=== PATIENT | male | born 1985 | race Caucasian/White ===

== ENCOUNTER 2018-04-17 16:29 | Outpatient (REF) | payer MEDICARE, MEDICAID, SELFPAY ==
[2018-04-17 21:35] LABS: Abs Immature Grans 0.08 k/cumm (0.0-0.09); Absolute Basophil Count 0.06 k/cumm (0.0-0.2); Basophils % 0.3; Eosinophils % 1.2; HCT 44.7 % (40.0-50.0); HGB 14.8 g/dL (13.5-17.5); Immature Grans % 0.4; Mean Corp. HGB Concentration 33.1 g/dL (32.0-36.0); Mean Corpuscular Hemoglobin 31.9 pg (27.0-33.0); Mean Corpuscular Volume 96.3 fL (80-95); Mean Platelet Volume 10.6 fL (8.0-11.0); Platelet Count 309 x1000/uL (130-400); RBC 4.64 m/cumm (4.50-6.00); RBC Distribution Width 13.2 % (11.8-14.1); White Blood Cell Count 19.09 k/cumm (4.4-10.8)
[2018-04-17 22:15] LABS: Absolute Eosinophil Count 0.23 k/cumm (0.0-0.7); Absolute Lymphocyte Count 8.59 k/cumm (1.2-3.4); Absolute Monocyte Count 0.57 k/cumm (0.11-0.7); Absolute Neutrophil Count 9.93 k/cumm (1.2-6.7); Atypical Lymphocytes % 3
[2018-04-17 22:16] LABS: Diff Comment Manual Differential; RBC Morphology Normal
== END 2018-04-17 16:49 ==
LOC: NCHCN 16:29
PROVIDERS: PCP Nurse Practitioner Family; Visit Provider Nurse Practitioner Family
DX: D72.829 Elevated white blood cell count, unspecified (principal); E78.5 Hyperlipidemia, unspecified; R56.9 Unspecified convulsions
CPT/HCPCS: 85025

== ENCOUNTER 2018-10-23 07:20 | Emergency (ER) | payer MEDICARE, MEDICAID, SELFPAY ==
[2018-10-23 07:33] VITALS: BP 122/76; PULSE 76; RESP 16; TEMP 36.9; O2SAT 99
--- NOTE | 2018-10-23 07:41 | DI.COMBO_ITS ---
SYMPTOM/DIAGNOSIS: INJURY RIGHT HAND AND RIGHT WRIST: 10/23 Three views of the hand and 3 views of the wrist were obtained. There is a linea lucency projected over the region of the base of the 5th metatarsal and distal hamate raising the possibility of a nondisplaced fracture, on oblique views of the wrist possible separate lucency through the distal hamate noted. No additional bony abnormality seen on radiographs of the hand and wrist. CONCLUSION: Findings suggesting fracture of the base of the 5th metacarpal and/or the distal hamate laterally. CT may be considered for more precise evaluation of possible fracture anatomy..
--- NOTE | 2018-10-23 08:52 | W.ED.GENAD ---
Discharge Plan Disposition Patient Disposition: HOME Condition: Stable Discharge Details Chief Complaint: Orthopedic Clinical Impression: Fracture, metacarpal Primary Care Provider: Saira Viera ED Provider: Thee Pinto Home Meds and New Rx's Prescriptions: No Action gabapentin 300 MG capsule 300 mg PO DAILY RF: 0 risperidone 3 MG tablet 1 tab PO HS RF: 0 Discharge Instructions Instructions: Hand Fracture (ED), Boxer Fracture (ED) Additional Instructions: He may continue to apply ice to the hand to help with swelling and take [id number] ibuprofen as needed for discomfort. Just take as directed on packaging. Please call the orthopedic office tomorrow for arrangement of follow-up appointment. Stand Alone Forms: Work Release Referrals: Darryl Salvador MD [ [facility] STAFF PHYSICIAN] - (Call the office tomorrow for arrangement of follow-up appointment) Discharge Data Discharge Date/Time-TO BE ENTERED AT DEPARTURE: 10/23/18 10:38 Medical Decision Making Patient presenting to the emergency department for chief complaint of right hand injury. Patient states 1 day ago he got upset and punched a solid wall. Afterwards he noted significant amount of pain and discomfort to his hand which is brought him to the emergency department today. Patient states he has applied some ice to the dorsal hand but still has significant amount of swelling discomfort. Patient has full range of motion of hand and wrist, mild discomfort to the base of the fifth metacarpal but significant amount of discomfort to midshaft and distal third and fourth metacarpals. Exam is otherwise unremarkable. Prior to me seeing patient staff analyst initiated protocol for ordering imaging which is appropriate. Review of imaging I did not see any obvious fracture but speaking with radiologist and radiologist interpretation there is a question of a very subtle fifth proximal metacarpal fracture and also question of a lateral hamate fracture. Both of these areas were only seen with small lunacy's no obvious displacement. Speaking with radiologist he questioned if we should do CT imaging to further view abnormalities. Prior to CT imaging I decided to discuss case with orthopedist. Spoke with Dr. Salvador whom recommended after review of imaging a universal cock-up splint. Patient placed upon orthopedic follow-up list. HPI General Mode of arrival: ambulatory. Date/Time Provider Initiated Documentation: 10/23/18 08:21. Limitations to Documentation: no limitations. Information obtained by: patient. History of Present Illness 33 year old M presents to the emergency department with the chief complaint of Right hand pain, blunt trauma, described as moderate, with intensity rated at 6. Quality is described as aching, and is localized to the right and upper extremity. Patient started experiencing this day(s) (1) and it has been constant. Movement worsens symptoms . Patient notes no other symptoms.. Patient did receive the following treatments prior to arrival, cold therapy Related Data Home Medications Medication Instructions Recorded Confirmed risperidone 1 tab PO HS 12/20/14 12/20/14 gabapentin 300 mg PO DAILY tab-cap 04/06/17 Allergies Allergy/AdvReac Type Severity Reaction Status Date / Time latex Allergy Mild Itching Unverified 04/06/17 08:31 Antihistamines - Alkylamine Allergy Unverified 04/06/17 08:31 tomatoes Allergy Mild Nausea Uncoded 12/20/14 11:54 General Stated Complaint: Orthopedic MILTON: 4 Review of Systems Musculoskeletal Reports as per HPI, Denies numbness and Denies tingling Integumentary/Breasts Denies rash, Denies sores and Denies wounds Neurologic Denies numbness and Denies tingling PFSH Social History Smoking/Tobacco Use Status: Current every day Alcohol Intake: former Drug use: Rarely Substance use type: does not use Do you feel safe at home: Yes Do you feel safe in your relationship?: Yes Exam Const General: cooperative and no acute distress Orientation: alert, awake and oriented x3 Resp Effort & Inspection: normal respiratory effort and able to speak in complete sentences Cardio Rate: regular rate Rhythm: regular rhythm Extrem General: normal exam except as noted Right upper extremity: wrist Details: normal to inspection, normal ROM, normal vascular exam and radial pulse present; no tenderness, no ecchymosis, no crepitus and no deformity and hand Details: neuromotor exam normal, neurosensory exam normal, tendon exam normal, tenderness Location: of the dorsal hand Location: over the 3rd metacarpal (Significant midshaft and distal), over the 4th metacarpal (Significant midshaft and distal) and over the 5th metacarpal (mild proximal tenderness), vascular exam Details: radial pulse present and normal capillary refill, normal ROM of fingers, swelling Location: of the dorsal hand and abrasion Location: of the dorsal hand Location: over the 3rd metacarpal (distal); no ecchymosis and no crepitus Course Temperature Source Tympanic 10/23/18 07:33
[2018-10-23] MEDS: Ibuprofen 600 MG TAB PO (09:07)
== END 2018-10-23 10:38 | disposition home or self-care (01) ==
PROVIDERS: Emergency Provider Nurse Practitioner Family; PCP Nurse Practitioner Family
DX: S62.306A Unspecified fracture of fifth metacarpal bone, right hand, initial encounter for closed fracture (principal); W22.8XXA Striking against or struck by other objects, initial encounter
CPT/HCPCS: 26600; 73110; 73130; L3809

== ENCOUNTER → 2018-11-01 11:23 | Outpatient (BNVA) | payer MEDICARE, MEDICAID, SELFPAY | PROVIDERS: PCP Nurse Practitioner Family; Referring Provider Nurse Practitioner Family; Visit Provider Orthopaedic Surgery | DX: S62.111A Displaced fracture of triquetrum [cuneiform] bone, right wrist, initial encounter for closed fracture (principal); W22.8XXA Striking against or struck by other objects, initial encounter | CPT/HCPCS: 99201; 99213; L3908 ==

== ENCOUNTER 2018-11-07 14:56 | Outpatient (REF) | payer MEDICARE, MEDICAID, SELFPAY ==
[2018-11-07 21:27] LABS: Abs Immature Grans 0.13 k/cumm (0.0-0.09); Absolute Basophil Count 0.05 k/cumm (0.0-0.2); Absolute Eosinophil Count 0.21 k/cumm (0.0-0.7); Absolute Monocyte Count 1.45 k/cumm (0.11-0.7); Absolute Neutrophil Count 18.13 k/cumm (1.2-6.7); Basophils % 0.2; Eosinophils % 0.8; HCT 43.3 % (40.0-50.0); HGB 14.4 g/dL (13.5-17.5); Immature Grans % 0.5; Lymphocytes % 22.7; Mean Corp. HGB Concentration 33.3 g/dL (32.0-36.0); Mean Corpuscular Volume 96.2 fL (80-95); Mean Platelet Volume 10.3 fL (8.0-11.0); Monocytes % 5.6; Neutrophils % 70.2; Platelet Count 362 x1000/uL (130-400); RBC Distribution Width 13.1 % (11.8-14.1)
[2018-11-07 21:37] LABS: Absolute Lymphocyte Count 5.86 k/cumm (1.2-3.4)
[2018-11-07 22:16] LABS: White Blood Cell Count 25.82 k/cumm (4.4-10.8)
[2018-11-07 22:17] LABS: Diff Comment Diff Reviewed; Macrocytosis 2+
== END 2018-11-07 15:16 ==
LOC: NCHCN 14:56
PROVIDERS: PCP Nurse Practitioner Family; Visit Provider Nurse Practitioner Family
DX: D72.829 Elevated white blood cell count, unspecified (principal); F20.9 Schizophrenia, unspecified; R56.9 Unspecified convulsions; F17.209 Nicotine dependence, unspecified, with unspecified nicotine-induced disorders
CPT/HCPCS: 85025

== ENCOUNTER → 2018-11-29 09:27 | Outpatient (BNVA) | payer MEDICARE, MEDICAID, SELFPAY | PROVIDERS: PCP Nurse Practitioner Family; Referring Provider Nurse Practitioner Family; Visit Provider Orthopaedic Surgery | DX: S62.111D Displaced fracture of triquetrum [cuneiform] bone, right wrist, subsequent encounter for fracture with routine healing (principal); X58.XXXD Exposure to other specified factors, subsequent encounter | CPT/HCPCS: 99213 ==

== ENCOUNTER 2019-05-03 13:09 | Outpatient (REF) | payer MEDICARE, MEDICAID, SELFPAY ==
[2019-05-03 20:44] LABS: Abs Immature Grans 0.05 k/cumm (0.0-0.09); Absolute Basophil Count 0.05 k/cumm (0.0-0.2); Absolute Lymphocyte Count 5.43 k/cumm (1.2-3.4); Absolute Monocyte Count 1.05 k/cumm (0.11-0.7); Basophils % 0.3; Eosinophils % 3.5; HGB 14.9 g/dL (13.5-17.5); Immature Grans % 0.3 %; Lymphocytes % 34.3; Mean Corp. HGB Concentration 33.1 g/dL (32.0-36.0); Mean Corpuscular Hemoglobin 31.2 pg (27.0-33.0); Mean Corpuscular Volume 94.3 fL (80-95); Mean Platelet Volume 10.1 fL (8.0-11.0); Monocytes % 6.6; Platelet Count 464 x1000/uL (130-400); RBC 4.77 m/cumm (4.50-6.00); RBC Distribution Width 12.6 % (11.8-14.1); White Blood Cell Count 15.84 k/cumm (4.4-10.8)
[2019-05-03 20:54] LABS: Absolute Eosinophil Count 0.55 k/cumm (0.0-0.7); Absolute Neutrophil Count 8.71 k/cumm (1.2-6.7)
[2019-05-03 21:39] LABS: Diff Comment Diff Reviewed; RBC Morphology Normal
== END 2019-05-03 13:29 ==
LOC: NCHCN 13:09
PROVIDERS: PCP Nurse Practitioner Family; Visit Provider Nurse Practitioner Family
DX: D72.829 Elevated white blood cell count, unspecified (principal); E78.5 Hyperlipidemia, unspecified
CPT/HCPCS: 85025

== ENCOUNTER 2019-05-25 12:44 | Outpatient (REF) | payer MEDICARE, MEDICAID, SELFPAY ==
[2019-05-25 20:57] LABS: Abs Immature Grans 0.04 k/cumm (0.0-0.09); Absolute Eosinophil Count 0.43 k/cumm (0.0-0.7); Absolute Lymphocyte Count 4.73 k/cumm (1.2-3.4); Basophils % 0.2; Eosinophils % 2.6; HCT 42.2 % (40.0-50.0); Immature Grans % 0.2 %; Lymphocytes % 28.9; Mean Corp. HGB Concentration 33.2 g/dL (32.0-36.0); Mean Corpuscular Hemoglobin 31.9 pg (27.0-33.0); Mean Corpuscular Volume 96.1 fL (80-95); Mean Platelet Volume 10.7 fL (8.0-11.0); Neutrophils % 61.1; Platelet Count 334 x1000/uL (130-400); RBC 4.39 m/cumm (4.50-6.00); RBC Distribution Width 13.2 % (11.8-14.1); White Blood Cell Count 16.35 k/cumm (4.4-10.8)
[2019-05-25 21:06] LABS: Absolute Basophil Count 0.03 k/cumm (0.0-0.2); Absolute Monocyte Count 1.14 k/cumm (0.11-0.7); Absolute Neutrophil Count 9.99 k/cumm (1.2-6.7)
[2019-05-25 21:07] LABS: ALT 32 U/L (16-63); AST 20 U/L (15-37); Albumin 3.8 g/dL (3.4-5.0); Alkaline Phosphatase 130 U/L (46-116); Anion Gap 7.4 mmol/L (3-11); BUN 12 mg/dL (7-18); Bilirubin, Total 0.4 mg/dL (0.2-1.0); CO2 27.6 mmol/L (21.0-32.0); CREATININE 0.92 mg/dL (0.70-1.30); Calcium 9.1 mg/dL (8.5-10.1); Chloride 108 mmol/L (98-107); Glucose 96 mg/dL (74-106); LDH 208 U/L (85-227); Potassium 4.2 mmol/L (3.5-5.1); Sodium 143 mmol/L (136-145); Total Protein 6.6 g/dL (6.4-8.2)
== END 2019-05-25 13:04 ==
LOC: NCHCN 12:44
PROVIDERS: PCP Nurse Practitioner Family; Visit Provider Nurse Practitioner Family
DX: D72.829 Elevated white blood cell count, unspecified (principal)
CPT/HCPCS: 80053; 83615; 85025

== ENCOUNTER 2020-01-15 15:21 | Outpatient (REF) | payer MEDICARE, MEDICAID, SELFPAY ==
[2020-01-15 21:16] LABS: Abs Immature Grans 0.05 10^3/uL (0.0-0.06); Absolute Eosinophil Count 0.35 10^3/uL (0.0-0.7); Absolute Neutrophil Count 11.07 10^3/uL (1.2-6.7); Basophils % 0.6; HCT 48.6 % (40.0-50.0); HGB 16.5 g/dL (13.5-17.5); Immature Grans % 0.3; Lymphocytes % 27.7; MCH 32.7 pg (27.0-33.0); MCV 96.2 fL (80-95); Monocytes % 6.1; Neutrophils % 63.3; Nucleated RBC 0 %; Platelet Count 341 10^3/uL (130-400); RBC 5.05 10^6/uL (4.36-5.78); RDW 12.1 % (11.8-14.1); RDW-SD 43.1 fL; WBC 17.49 10^3/uL (4.4-10.8)
[2020-01-15 21:19] LABS: Absolute Lymphocyte Count 4.84 10^3/uL (1.2-3.4); Absolute Monocyte Count 1.07 10^3/uL (0.1-0.8)
== END 2020-01-15 15:41 ==
LOC: NCHCN 15:21
PROVIDERS: PCP Nurse Practitioner Family; Visit Provider Nurse Practitioner Family
DX: D72.829 Elevated white blood cell count, unspecified (principal); E78.5 Hyperlipidemia, unspecified; F20.9 Schizophrenia, unspecified
CPT/HCPCS: 85025

== ENCOUNTER 2020-05-05 15:18 | Outpatient (REF) | payer MEDICARE, MEDICAID, SELFPAY ==
[2020-05-06 09:36] LABS: HIV-1/2 Ag & Ab Screen Negative (Negative)
[2020-05-06 10:30] LABS: Syphilis Serology (RPR) Negative (Negative)
== END 2020-05-05 15:19 | disposition home or self-care (01) ==
LOC: NCHCN 15:18
PROVIDERS: PCP Nurse Practitioner Family; Visit Provider Nurse Practitioner Family
DX: Z11.3 Encounter for screening for infections with a predominantly sexual mode of transmission (principal); Z11.4 Encounter for screening for human immunodeficiency virus [HIV]; D72.829 Elevated white blood cell count, unspecified
CPT/HCPCS: 87389; 86592

== ENCOUNTER 2020-08-25 08:21 | Outpatient (REF) | payer MEDICARE, MEDICAID, SELFPAY ==
[2020-08-25 15:15] LABS: Abs Immature Grans 0.07 10^3/uL (0.0-0.06); Absolute Basophil Count 0.08 10^3/uL (0.0-0.2); Basophils % 0.5; Eosinophils % 1.7; HCT 45.4 % (40.0-50.0); HGB 14.7 g/dL (13.5-17.5); Immature Grans % 0.4; Lymphocytes % 24.6; MCH 31.5 pg (27.0-33.0); MCHC 32.4 % (32.0-36.0); MCV 97.2 fL (80-95); MPV 10.7 fL (8.0-11.0); Monocytes % 5.3; Neutrophils % 67.5; Nucleated RBC 0 %; Platelet Count 338 10^3/uL (130-400); RBC 4.67 10^6/uL (4.36-5.78); RDW 12.6 % (11.8-14.1); RDW-SD 44.7 fL; WBC 16.27 10^3/uL (4.4-10.8)
[2020-08-25 15:17] LABS: Absolute Eosinophil Count 0.28 10^3/uL (0.0-0.7); Absolute Monocyte Count 0.86 10^3/uL (0.1-0.8); Absolute Neutrophil Count 10.98 10^3/uL (1.2-6.7)
== END 2020-08-25 08:22 | disposition home or self-care (01) ==
LOC: NCHCN 08:21
PROVIDERS: PCP Nurse Practitioner Family; Visit Provider Nurse Practitioner Family
DX: J30.2 Other seasonal allergic rhinitis (principal); D72.829 Elevated white blood cell count, unspecified; M54.5 Low back pain; G89.29 Other chronic pain; F20.9 Schizophrenia, unspecified; E78.5 Hyperlipidemia, unspecified; R26.9 Unspecified abnormalities of gait and mobility; F17.200 Nicotine dependence, unspecified, uncomplicated
CPT/HCPCS: 85025

== ENCOUNTER 2021-04-28 18:52 | Outpatient (REF) | payer OTHER, MEDICAID, SELFPAY ==
[2021-04-28 15:03] LABS: Abs Immature Grans 0.07 10^3/uL (0.0-0.06); Absolute Basophil Count 0.08 10^3/uL (0.0-0.2); Absolute Lymphocyte Count 4.82 10^3/uL (1.2-3.4); Basophils % 0.5; Eosinophils % 0.5; HCT 44.7 % (40.0-50.0); Immature Grans % 0.4; MCH 31.5 pg (27.0-33.0); MCHC 31.3 % (32.0-36.0); MCV 100.7 fL (80-95); MPV 10.1 fL (8.0-11.0); Monocytes % 4.6; Nucleated RBC 0 %; Platelet Count 378 10^3/uL (130-400); RBC 4.44 10^6/uL (4.36-5.78); RDW 12.4 % (11.8-14.1); RDW-SD 46.7 fL; WBC 16.62 10^3/uL (4.4-10.8)
[2021-04-28 15:06] LABS: Absolute Eosinophil Count 0.08 10^3/uL (0.0-0.7); Absolute Monocyte Count 0.76 10^3/uL (0.1-0.8)
[2021-04-28 15:25] LABS: ALT 20 U/L (16-63); AST 11 U/L (15-37); Albumin 4.1 g/dL (3.4-5.0); Alkaline Phosphatase 144 U/L (46-116); Anion Gap 8.3 mmol/L (3-11); BUN 18 mg/dL (7-18); Bilirubin, Total 0.3 mg/dL (0.2-1.0); CO2 29.7 mmol/L (21.0-32.0); CREATININE 0.8 mg/dL (0.70-1.30); Calcium 9.3 mg/dL (8.5-10.1); Calculated LDL 161 mg/dL (<100); Chloride 102 mmol/L (98-107); Cholesterol 251 mg/dL (<200); Glucose 160 mg/dL (74-106); HDL Cholesterol 44 mg/dL (40-60); Potassium 4.5 mmol/L (3.5-5.1); Sodium 140 mmol/L (136-145); TSH 2.31 uIU/mL (0.36-3.74); Total Protein 7.4 g/dL (6.4-8.2); Triglyceride 230 mg/dL (<150)
[2021-04-28 16:00] LABS: Amylase 46 U/L (25-115); FREE T4 0.89 ng/dL (0.76-1.46); Lipase 71 U/L (73-393)
[2021-04-28 22:28] LABS: T3,Free 3.8 pg/mL (2.8-5.3)
[2021-04-30 07:37] LABS: GGT 35 U/L (15-85)
[2021-04-30 09:40] LABS: C-Peptide 2.8 ng/mL (1.1 - 4.4)
[2021-05-06 13:46] LABS: ZnT8 Antibodies <15.0 U/mL (<15.0)
== END 2021-04-28 18:53 | disposition home or self-care (01) ==
LOC: NCHCN 18:52
PROVIDERS: PCP Nurse Practitioner Family; Visit Provider Nurse Practitioner Family
DX: E11.9 Type 2 diabetes mellitus without complications (principal); R74.8 Abnormal levels of other serum enzymes
CPT/HCPCS: 80053; 80061; 83690; 86337; 86341; 82150; 82977; 84439; 84443; 84481; 84681; 85025

== ENCOUNTER 2021-04-30 17:32 | Outpatient (REF) | payer OTHER, MEDICAID, SELFPAY | END 2021-04-30 17:33 | disposition home or self-care (01) | LOC: NCHCN 17:32 | PROVIDERS: PCP Nurse Practitioner Family; Visit Provider Nurse Practitioner Family ==

== ENCOUNTER 2021-08-28 12:36 | Outpatient (REF) | payer OTHER, MEDICAID, SELFPAY ==
[2021-08-28 19:29] LABS: Abs Immature Grans 0.06 10^3/uL (0.0-0.06); Absolute Eosinophil Count 0.19 10^3/uL (0.0-0.7); Absolute Neutrophil Count 9.09 10^3/uL (1.2-6.7); Basophils % 0.4; Eosinophils % 1.2; HCT 42.6 % (40.0-50.0); HGB 14.3 g/dL (13.5-17.5); Immature Grans % 0.4; Lymphocytes % 34.5; MCH 32.2 pg (27.0-33.0); MCHC 33.6 % (32.0-36.0); MCV 96 fL (80-95); MPV 10.4 fL (8.0-11.0); Monocytes % 5.3; Neutrophils % 58.2; Platelet Count 323 10^3/uL (130-400); RBC 4.44 10^6/uL (4.36-5.78); RDW 12.3 % (11.8-14.1); RDW-SD 43.5 fL; WBC 15.61 10^3/uL (4.4-10.8)
[2021-08-28 19:30] LABS: Absolute Basophil Count 0.06 10^3/uL (0.0-0.2); Absolute Lymphocyte Count 5.39 10^3/uL (1.2-3.4); Absolute Monocyte Count 0.83 10^3/uL (0.1-0.8)
[2021-08-28 19:43] LABS: ALT 22 U/L (16-63); AST 23 U/L (15-37); Albumin 4.1 g/dL (3.4-5.0); Alkaline Phosphatase 126 U/L (46-116); Anion Gap 10.3 mmol/L (3-11); BUN 16 mg/dL (7-18); Bilirubin, Total 0.3 mg/dL (0.2-1.0); CO2 26.7 mmol/L (21.0-32.0); Calcium 9.1 mg/dL (8.5-10.1); Chloride 104 mmol/L (98-107); Glucose 78 mg/dL (74-106); Sodium 141 mmol/L (136-145); Total Protein 7.4 g/dL (6.4-8.2)
[2021-08-28 19:56] LABS: Diff Comment Agrees w/ Instrument; RBC Morphology Normal
[2021-08-31 05:53] LABS: Vitamin D 25 Total 34.4 ng/mL (30-100)
== END 2021-08-28 12:37 | disposition home or self-care (01) ==
LOC: NCHCN 12:36
PROVIDERS: PCP Nurse Practitioner Family; Visit Provider Nurse Practitioner Family
DX: E87.6 Hypokalemia (principal); R74.8 Abnormal levels of other serum enzymes; E11.9 Type 2 diabetes mellitus without complications; J30.2 Other seasonal allergic rhinitis; D72.829 Elevated white blood cell count, unspecified; E78.5 Hyperlipidemia, unspecified; Z72.0 Tobacco use
CPT/HCPCS: 80053; 82306; 85025

== ENCOUNTER 2021-11-30 21:02 | Emergency (ER) | payer OTHER, MEDICAID, SELFPAY ==
[2021-11-30 21:06] VITALS: BP 111/71; PULSE 90; RESP 16; TEMP 36.6; O2SAT 97
--- NOTE | 2021-11-30 21:23 | ED.GENADUL_ITS ---
Discharge Plan Disposition Patient Disposition: STILL A PATIENT Condition: Stable Discharge Details Clinical Impression: Psychosis Primary Care Provider: Saira Viera ED Provider: King Mcfadden Home Meds and New Rx's Prescriptions: No Action aripiprazole [Abilify] 5 mg tablet 5 mg PO QHS gabapentin 300 MG capsule 300 mg PO DAILY risperidone 3 MG tablet 1 tab PO HS Label Comments: 04/06/17 PER CAREGIVER PT. TAKES 4 MG QD. insulin aspart U-100 100 unit/mL (3 mL) insulin pen SUBCUT Levemir FlexTouch U-100 Insuln 100 unit/mL (3 mL) insulin pen 20 unit SUBCUT DAILY Label Comments: ADMINISTER 20 UNITS UNDER THE SKIN EVERY MORNING potassium chloride 20 mEq tablet extended release 1 tab PO DAILY Label Comments: TAKE 1 TABLET BY MOUTH EVERY DAY Medical Decision Making 36 yo male with prior psychiatric episodes including threatening behavior and psychosis comes in with [facility] and pd on involuntary psych evaluation for psychosis per [facility]. He is currently calm and doesn't answer many questions. He does know his name where he is and year but won't answer most other questions including ros or past medical history. HE does state he wants food and coffee. Per [facility] he has been living at the [place] and acting bizarre for weeks and has been worsening. They report he has been telling other neighbors that they are actually people and talking of other nonsensical things. He has been punching side walks and apparently was found tonight when he was placed on ee status by pd completely wet on his pants and had no idea how he had gotten to [place]. He has normal gait and moving all extremities, no agitation on exam. Based on provided [facility] history feel he warrants involuntary psychiatric assessment. EE papers filled out. He has no signs of trauma, normal gait and has had prior psychiatric episodes similar to this so doubt underlying medical proc ess. Differential Diagnosis Differential Diagnosis: schizophrenia, psychosis Medical Records Medical records reviewed: Yes I reviewed the patient's medical records. HPI General Mode of arrival: ambulatory . Date/Time Provider Initiated Documentation: 11/30/21 21:05 . Information obtained by: old records reviewed ([facility]) . History of Present Illness 36 year old M presents to the emergency department with the chief complaint of psychotic per [facility], Patient started experiencing this month(s) (1) and it has been constant. No relieving factors improve symptom(s), No exacerbating factors reported . Patient did receive the following treatments prior to arrival, none Related Data Home Medications Medication Instructions Recorded Confirmed risperidone 3 mg tablet 1 tab PO HS 12/20/14 11/30/21 gabapentin 300 mg capsule 300 mg PO DAILY 04/06/17 11/30/21 aripiprazole 5 mg tablet (Abilify) 5 mg PO QHS 11/01/18 11/29/18 insulin aspart U-100 100 unit/mL device subcut 11/30/21 (3 mL) subcutaneous pen insulin detemir U-100 100 unit/mL 20 unit subcut DAILY 11/30/21 11/30/21 (3 mL) subcutaneous pen (Levemir FlexTouch U-100 Insulin) potassium chloride 20 mEq 1 tab PO DAILY 11/30/21 11/30/21 tablet,extended release Allergies Allergy/AdvReac Type Severity Reaction Status Date / Time latex Allergy Mild Itching Unverified 11/30/21 21:13 Antihistamines - Alkylamine Allergy Unverified 11/30/21 21:13 tomatoes Allergy Mild Nausea Uncoded 11/30/21 21:13 General Stated Complaint: PsychEval MILTON: 2 Review of Systems Unobtainable due to mental status (refusing to answer questions) PFSH All Active Problems (Updated 11/30/21 @ 22:03 by King Mcfadden MD) Psychosis (Acute) Fracture of triquetrum of right wrist (Acute) Mental health hold (Acute) Homicidal ideation (Acute) a. Statements of wanting to kill people. Tobacco use (Chronic) Marijuana use (Chronic) History of ankle fracture (Chronic) Dyslexia (Chronic) Psychiatric symptoms (Chronic) a. Terrible temper. b. Apparently has had trouble with law enforcement in the past. Social History Smoking/Tobacco Use Status: Current every day Tobacco Type: cigarettes Smoking risk assessment performed?: Yes Alcohol Intake: current Drug use: Rarely Substance use type: does not use Current gender identity: male Do you feel safe at home: Yes Do you feel safe in your relationship?: Yes Exam Const General: no acute distress Orientation: alert HENMT Head: normal to inspection Ears: external ears normal General nose exam: external nose normal Mouth: moist mucous membranes Eyes General: appearance normal, both eyes and all related structures Neck Neck: normal visual inspection Resp Effort & Inspection: normal respiratory effort and able to speak in complete sentences Cardio Rate: regular rate Skin General skin exam: no rashes or lesions noted Neuro General: patient alert Extrem General: normal to inspection Psych Speech and Movement: not agitated Course Vital Signs Vital signs: Vital Signs Temperature 36.6 C 11/30/21 21:06 Pulse 90 11/30/21 21:06 Respiratory Rate 16 11/30/21 21:06 Blood Pressure 111/71 11/30/21 21:06 Pulse Oximetry 97 11/30/21 21:06 Temperature 36.6 C 11/30/21 21:06 Temperature Source Temporal Artery Scan 11/30/21 21:06 Pulse 90 11/30/21 21:06 Respiratory Rate 16 11/30/21 21:06 Respiratory Effort 11/30/21 21:06 Blood Pressure 111/71 11/30/21 21:06 Blood Pressure Position Sitting 11/30/21 21:06 Pulse Oximetry 97 11/30/21 21:06 Oxygen Delivery Method Room Air 11/30/21 21:06 Oxygen Flow Rate 0 11/30/21 21:06
[2021-11-30] MEDS: LORazepam 1 MG TAB 2 MG PO (21:47)
[2021-11-30] MEDS: Haloperidol 5 MG TAB PO (21:47)
[2021-11-30 21:57] LABS: Abs Immature Grans 0.04 10^3/uL (0.0-0.06); Absolute Eosinophil Count 0.06 10^3/uL (0.0-0.7); Basophils % 0.3; Eosinophils % 0.4; HCT 39.6 % (40.0-50.0); HGB 12.9 g/dL (13.5-17.5); Immature Grans % 0.3; Lymphocytes % 28.8; MCH 31.7 pg (27.0-33.0); MCHC 32.6 % (32.0-36.0); MCV 97 fL (80-95); MPV 10.8 fL (8.0-11.0); Monocytes % 6.6; Neutrophils % 63.6; Platelet Count 225 10^3/uL (130-400); RBC 4.07 10^6/uL (4.36-5.78); RDW 12.6 % (11.8-14.1); RDW-SD 45.1 fL; WBC 14.77 10^3/uL (4.4-10.8)
--- NOTE | 2021-11-30 22:01 | PDOC.MHCN ---
Date of service: 11/30/21 Time of Service: 22:05 Mental Health Emergency Note Release [facility] release signed:: Yes Reason for Visit Client arrived at [facility] ED via [facility] police department after a MH warrant was executed on client. Client was taken into protective custody earlier this evening after police received reports that client was standing in [facility] parking lot with no shoes on and wet and waving a knife at people. Client states to this justowriter operator when attempting to be assessed: my name is not Sohan, I am Tyree and I am going to counts include 234 beds at the [facility]. Client also is reported to [employer] that family members are and reports that he can see through them. In the last 2 weeks has the pt presented for ES prior to today?: No Client Information Client is: IDDS (Client is part of the IDDS program at [facility]) Well Housed: No,status: Homeless Non Suicidal Self Injury Current: No History: yes, Client has been hospitalized 2x on an involuntary hold in 2013 for similar presentation and homicidial ideations. Safety Risk/Harm to Self or Others Current Ideation to Harm Self or Others: Yes to self. Intent: no, has no intent. Plan: no.does not have a plan. and to others. Intent: yes, has intent to harm others Plan: no, does not have a plan. History of becoming violent with another person(any age): yes,history of violence with others. Risk: Does risk to harm exist?: yes. Risk: High Risk Duty to warn indicated: No Asssessment/Mental Status Appearance: Unremarkable Attitude: Guarded Behavior: Poor impulse control and Repetitive movements Speech: Slow and Hesitant Affect: Expansive and Cogruent with mood Mood: Stressed, Depressed and Irritable Thought process: Loose associations Hallucinations: yes, Visual and Auditory Delusions: yes, Persectory/Paranoid and Bizarre Attention: Wandering and Poor concentration Perception: Not impaired Orientation: Fully orientated Memory: Intact Insight: Poor Judgement: Poor Neurovegetative Symptoms Sleep: Decrease Appetitie: Decrease Interests: Decrease Energy: Decrease Libido: Not applicable Substance Use: Do you use nicotine?: Yes Have you used substances in the last 7 days?: No Additional Issues: Assaultive/Threatening Behavior: Yes Medical Concerns: Yes Client engaged in active self harm w/weapon: No Threatening to run away: No Child reported abuse/neglect: No Voluntarily presenting for services: No Domestic violence is a concern: No Extreme Psychosis or extreme behavior is present: Yes Impression Client was taken into protective custody earlier this evening after police received reports that client was standing in [facility] parking lot with no shoes on and wet and waving a knife at people. Client states to this justowriter operator when attempting to be assessed: my name is not Sohan, I am Tyree and I am going to counts include 234 beds at the [facility]. Client also is reported to [facility] that family members are and reports that he can see through them. Client is presenting with delusional thinking that puts both himself and others at risk at this time. Plan/Disposition Recommended Disposition: Hospitalization (Referrals will be faxed to [facility], , and [facility]. ) No. Plan: Client will remain at [facility] ED on involuntary status pending 2nd certification by a psychiatrist from [facility] and physicians 1st certification completed by [facility] ED attending provider Bogdan. Once client is medically cleared referrals will be faxed to all hospitals. Client will be re-assessed by [facility] daily until placement is secured. Person reported agreement to plan: No Reports/communication Outcome discussed with: ED/Personnel (Verbal passover given to [facility] ED staff. )
[2021-11-30 22:04] LABS: Absolute Basophil Count 0.04 10^3/uL (0.0-0.2); Absolute Lymphocyte Count 4.25 10^3/uL (1.2-3.4); Absolute Monocyte Count 0.97 10^3/uL (0.1-0.8); Absolute Neutrophil Count 9.39 10^3/uL (1.2-6.7)
[2021-11-30 22:21] LABS: ALT 31 U/L (16-63); AST 24 U/L (15-37); Albumin 4.2 g/dL (3.4-5.0); Alkaline Phosphatase 151 U/L (46-116); BUN 23 mg/dL (7-18); Bilirubin, Total 0.6 mg/dL (0.2-1.0); CREATININE 0.9 mg/dL (0.70-1.30); Calcium 9.5 mg/dL (8.5-10.1); Chloride 104 mmol/L (98-107); Estimated GFR 112.81 (mL/min/1.73m2); Glucose 106 mg/dL (74-106); Potassium 3.7 mmol/L (3.5-5.1); Sodium 143 mmol/L (136-145); Total Protein 7.7 g/dL (6.4-8.2)
[2021-11-30 22:25] LABS: Salicylate < 2.8 mg/dL (<2.8)
[2021-11-30 22:32] LABS: Acetaminophen < 2 ug/mL (10-30)
[2021-11-30 22:38] LABS: ETHANOL BLOOD < 3.0 mg/dL (<10)
--- NOTE | 2021-12-01 09:49 | CMSP_ITS ---
- If Service Date Differs Date of service: 12/01/21 Time of Service: 09:49 Care Management Safety Plan Status: Involuntary - Reason for Wait Reason for Wait: Other (Awaiting 2nd Certification by Psychiatrist) CHIEF COMPLAINT: Sohan presents in the ED via police on a Warrant for Emergency Examination. Sohan is a client of [facility] - IDDS Program and his mother, Davina Mendoza, is his legal guardian. He reportedly is homeless, has not been taking his prescribed medications for over a month and has rapidly decompensated. [facility] Police reported to [facility] that Sohan has threatened people in town with a knife. He presents as delusional and claims to see people. INVOLUNTARY FOR INPATIENT PSYCHIATRIC STABILIZATION. Safety plan has been established to meet the needs of the patient, and consideration of the care team, to adhere to patient goals, identify restrictions based on behavioral status, address nutrition, and determine allowed personal belongings, tools for hygiene and personal care. Determine level of activity including ambulation, level of supervision, visitors, and determine privileges based on behaviors and level of engagement by pt. SAFETY PLAN: 1. Will remain on SI/HI precautions. In Paper Clothes 2. Will remain in room under direct supervision of one-on-one staff at all times provided by [employer], REGIONAL ENVIRONMENTAL MANAGER, FISCAL MANAGER java performance engineer. 3. May have paper cups, plates, finger foods as well as a cardboard spoon to eat meals with. 4. Follow [facility] Management of the Admitted Behavioral Health Patient policy. 5. Comfort bath system only. 6. No personal belongings 7. Visitors: None at this time. 8. Activities: Soft cart items, television and other activities at RN discretion. 9. Bathroom privileges with supervision 10. Phone: May use [employer] phone at RN discretion. 11. Due to INVOLUNTARY status, patient is being held at [facility] by the Department of Mental Health ([facility]) until 2nd certification by [facility] Psychiatrist can be performed (within 24 hours). Staff will provide de-escalation support (CPI) as needed. If patient wishes to leave [facility], staff will contact [facility] Crisis Screener ([phone]) and On-Call Technical Staff Engineer ([phone]) as soon as possible. In the event of elopement, notify [facility] Police ([phone]). Patient is currently involuntarily at [facility]. [facility] Frontline Emergency Detail Driver will continue seeking placement. Please contact the Veterinary Surgeon Technical Staff Engineer ([phone]) for any needed changes to Safety Plan. Safety plan has been provided to interdepartmental care team. Patient will be transported by entry level account representative at time of discharge.
--- NOTE | 2021-12-01 09:49 | PDOC.CMSAFED ---
- If Service Date Differs Date of service: 12/01/21 Time of Service: 09:49 Care Management Safety Plan Status: Involuntary - Reason for Wait Reason for Wait: Other (Awaiting 2nd Certification by Psychiatrist) CHIEF COMPLAINT: Sohan presents in the ED via police on a Warrant for Emergency Examination. Sohan is a client of [facility] - IDDS Program and his mother, Davina Mendoza, is his legal guardian. He reportedly is homeless, has not been taking his prescribed medications for over a month and has rapidly decompensated. [facility] Police reported to [facility] that Sohan has threatened people in town with a knife. He presents as delusional and claims to see people. INVOLUNTARY FOR INPATIENT PSYCHIATRIC STABILIZATION. Safety plan has been established to meet the needs of the patient, and consideration of the care team, to adhere to patient goals, identify restrictions based on behavioral status, address nutrition, and determine allowed personal belongings, tools for hygiene and personal care. Determine level of activity including ambulation, level of supervision, visitors, and determine privileges based on behaviors and level of engagement by pt. SAFETY PLAN: 1. Will remain on SI/HI precautions. In Paper Clothes 2. Will remain in room under direct supervision of one-on-one staff at all times provided by [employer], TOY ASSEMBLER WOOD, SENIOR MANAGER QUALITY ASSURANCE petroleum inspector. 3. May have paper cups, plates, finger foods as well as a cardboard spoon to eat meals with. 4. Follow [facility] Management of the Admitted Behavioral Health Patient policy. 5. Comfort bath system only. 6. No personal belongings 7. Visitors: None at this time. 8. Activities: Soft cart items, television and other activities at RN discretion. 9. Bathroom privileges with supervision 10. Phone: May use [employer] phone at RN discretion. 11. Due to INVOLUNTARY status, patient is being held at [facility] by the Department of Mental Health ([facility]) until 2nd certification by [facility] Psychiatrist can be performed (within 24 hours). Staff will provide de-escalation support (CPI) as needed. If patient wishes to leave [facility], staff will contact [facility] Crisis Screener ([phone]) and On-Call Microstrategy Reports Developer ([phone]) as soon as possible. In the event of elopement, notify [facility] Police ([phone]). Patient is currently involuntarily at [facility]. [facility] Frontline Record Tester will continue seeking placement. Please contact the Airplane Technician Microstrategy Reports Developer ([phone]) for any needed changes to Safety Plan. Safety plan has been provided to interdepartmental care team. Patient will be transported by ear machine operator at time of discharge.
--- NOTE | 2021-12-01 10:47 | ED.PROG_ITS ---
Date of service: 12/01/21 Time of Service: 08:00 Medical Decision Making 0800 -- Please see previous provider's notes for initial presentation, exam, and plan. Case endorsed to continue to monitor while awaiting placement. 104 -- mental health attempted to evaluate at bedside but patient declining to speak with them. He remains paranoid. Second certificate will likely happen later this evening. Referrals will be placed. 1999 -- Case endorsed to oncoming provider to continue to monitor overnight whil e awaiting placement. Sign Out Sign Out Data: Sign Out Comment: lives at [place], acting bizarre and psychotic, telling neighbors they are all and punching side walks, pending second cert Last updated by King Mcfadden MD at 11/30/21 22:24 Sign Out Comment: Stable throughout the night. No interventions needed Last updated by Chris Hoover DO at 12/01/21 07:42 Sign Out Comment: Patient refused to speak to mental health today. Second certificate completed. Awaiting placement. Last updated by Sarah Abbott DO at 12/01/21 19:44 Sign Out Comment: Patient stable throughout the night. No interventions needed Last updated by Chris Hoover DO at 12/02/21 03:32 Sign Out Comment: EE. [facility] [place] requested COvid test Last updated by Darryl Crain MD at 12/02/21 14:25 Discharge Plan Disposition Patient Disposition: STILL A PATIENT Condition: Stable Discharge Details Clinical Impression: Psychosis Primary Care Provider: Saira Viera ED Provider: Sarah Abbott Home Meds and New Rx's Prescriptions: No Action aripiprazole [Abilify] 5 mg tablet 5 mg PO QHS Levemir FlexTouch U-100 Insuln 100 unit/mL (3 mL) insulin pen 20 unit SUBCUT DAILY Label Comments: ADMINISTER 20 UNITS UNDER THE SKIN EVERY MORNING potassium chloride 20 mEq tablet extended release 1 tab PO DAILY Label Comments: TAKE 1 TABLET BY MOUTH EVERY DAY insulin aspart U-100 100 unit/mL (3 mL) insulin pen SUBCUT
--- NOTE | 2021-12-01 11:22 | MHPN_ITS ---
Date of service: 12/01/21 Time of Service: 10:17 Mental Health Emergency Note Release [facility] release signed:: Yes Reason for Visit Client presented to [facility] ED on 11/30/21 after a MH warrant was executed. Client will be seen on 12/01 for 2nd certification later this evening; time has not been identified as of yet. In the last 2 weeks has the pt presented for ES prior to today?: Unknown Client Information Client is: IDDS (Case Mangaer is Wiliam Chadwick) Well Housed: No,status: Homeless Unstable housing Non Suicidal Self Injury Current: No History: yes, yes, Client has been hospitalized 2x on an involuntary hold in 2013 for similar presentation and homicidal ideations. Safety Risk/Harm to Self or Others Current Ideation to Harm Self or Others: Yes to self. Intent: no, has no intent. Plan: no.does not have a plan. and to others. Intent: No Plan: no, does not have a plan. History of becoming violent with another person(any age): yes,history of violence with others. Experienced legal problems due to harming another person: No Risk: Does risk to harm exist?: yes. Risk: Severe Duty to warn indicated: No Asssessment/Mental Status Appearance: Unremarkable Attitude: Guarded Behavior: Agitated Speech: Slow and Hesitant Affect: Flat and Cogruent with mood Mood: Stressed, Depressed and Irritable Thought process: Loose associations Hallucinations: yes, Visual and Auditory Delusions: yes, Persectory/Paranoid and Bizarre Attention: Wandering and Poor concentration Perception: Not impaired Orientation: Fully orientated Memory: Intact Insight: Poor Judgement: Poor Neurovegetative Symptoms Sleep: Decrease Appetitie: Decrease Interests: Decrease Energy: Decrease Libido: Not applicable Substance Use: Do you use nicotine?: Yes Have you used substances in the last 7 days?: No Additional Issues: Assaultive/Threatening Behavior: Yes Medical Concerns: Yes Client engaged in active self harm w/weapon: No Threatening to run away: No Child reported abuse/neglect: No Voluntarily presenting for services: No Domestic violence is a concern: No Extreme Psychosis or extreme behavior is present: Yes Impression Per Keeley Moon ESC report, Client was taken into protective custody on the evening of 11/30, after police received reports client was standing in [facility] parking lot with no shoes on and wet and waving a knife at people. Client stated to ESC Keeley Moon when attempting to be assessed: my name is not Sohan, I am Tyree and I am going to [facility]. Client also is reported to believe that family members are and reports that he can see through them. Client is presenting with delusional thinking that puts both himself and others at risk at this time. Prior to screening client, this investment underwriter gained colleratal information from client's attending MD Dr. Sarah Abbott. Dr. Abbott had no updates at this time and just asked for clarification on status of securing placements. This investment underwriter informed Dr. Abbott referrals will be sent once this investment underwriter returns to the office. This investment underwriter also informed Dr. Abbott, client's second certifcation will be taking place later this evening, however a set time has not been secured as of yet. When this investment underwriter screened client at [facility] ED in person, Wiliam Chadwick IDDS complex case manager was present. Client presented extremely guarded and was hesitant in responding to this investment underwriter's questions. Client would often reply to this investment underwriter's questions in a hostile manner, making statements such as, I am fine, you don't need to know that, or that is non of your business. Client denies actively endorsing SI/NSSI/HI. Client presented as if he were responding to internal stimuli. It should be noted at points in conversation with this investment underwriter, client appeared to blankly stare at this investment underwriter. Client would close his eyes and be non responsive during times throughout the screening. This investment underwriter needed to redirect this client mulitple times. At times in the screening client would become agaitated and esclated. Towards the end of conversation, client would no longer engage in conversation with this investment underwriter. This investment underwriter explained to client that he was currently being held on involuntary status at [facility] ED until placement for IP MH tx can be secured. After screening client, update was provided to Dr. Abbott. Plan/Disposition Recommended Disposition: Hospitalization (Referrals will be sent to ,,[facility]) facilities contacted. Plan: Client will remain at [facility] ED on involuntary status pending 2nd certification by a psychiatrist from [facility].Exhibit B and Physicians 1st certificationwas completed by Dr. Mcfadden. Collateral information on client will be gathered later this evening by attending MD or Nurse from . Person reported agreement to plan: Yes Facilities contacted if Applicable [facility] (Pending review ) Accepted, Pending review. Information Sent to [place]: Referral [facility] (Pending Review) Accepted, Pending review. Information Sent to [facility]: Referral [facility] (Pending review ) Accepted, Pending review. Information Sent to [place]: Referral, [facility] (Pending review) Accepted, Pending review. Information Sent to [place]: Referral Reports/communication Outcome discussed with: ED/Personnel (Dr. Sarah Abbott)
[2021-12-01 16:23] LABS: Bilirubin Negative (Negative); Blood Negative (Negative); Clarity Sl Cloudy (Clear); Glucose Negative (Negative); Ketones 40 mg/dL (Negative); Leukocyte Esterase Negative (Negative); Nitrite Negative (Negative); Specific Gravity >= 1.030 (1.005-1.025); pH 6.5 (5-8)
[2021-12-01 16:36] LABS: Bacteria Negative HPF (Negative); C & S Indicated? No; Casts 0-2 Hyaline LPF (Negative); Crystals Negative HPF (Negative); Epithelial Cells Rare HPF (Negative); Mucus Heavy (Negative); RBC 0-2 HPF (0-2); WBC 0-2 HPF (0-5)
[2021-12-01 16:40] LABS: *AMPHETAMINES SCREEN URINE Negative (Negative); *BARBITURATES SCREEN URINE Negative (Negative); *BENZODIAZEPINES SCREEN URINE Negative (Negative); Cannabinoids THC Negative (Negative); Cocaine Screen,Urine Negative (Negative); METHADONE URINE SCREEN Negative (Negative); OPIATES URINE SCREEN Negative (Negative)
[2021-12-01 16:41] LABS: Tricyclic Antidepressants Negative (Negative)
--- NOTE | 2021-12-01 19:23 | NUR.NOTE ---
patient sitting quietly on stretcher. He ate one bite of dinner and drank his coffee. He has water available at the bedside. CPSO at [facility]. Patient is injury free at this time.
--- NOTE | 2021-12-01 20:23 | NUR.NOTE ---
patient, quiet, calm, appropriate sitting on stretcher watching TV. Has ice water at the bedside available, is free from injuries at this time. CPSO at the bedside continuing to monitor patient
[2021-12-02 12:08] LABS: Hemoglobin A1C 6.4 % (<5.7)
[2021-12-02 14:33] LABS: Source Nasal/Nares
[2021-12-02 15:08] LABS: COVID-19 PCR Negative (Negative)
--- NOTE | 2021-12-02 15:26 | CMSP_ITS ---
- If Service Date Differs Date of service: 12/02/21 Time of Service: 15:26 Care Management Safety Plan Status: Involuntary - Reason for Wait Reason for Wait: Inpatient Admission NVOLUNTARY FOR INPATIENT PSYCHIATRIC STABILIZATION. Safety plan has been established to meet the needs of the patient, and consideration of the care team, to adhere to patient goals, identify restrictions based on behavioral status, address nutrition, and determine allowed personal belongings, tools for hygiene and personal care. Determine level of activity including ambulation, level of supervision, visitors, and determine privileges based on behaviors and level of engagement by pt. SAFETY PLAN: 1. Will remain on SI/HI precautions. In Paper Clothes 2. Will remain in room under direct supervision of one-on-one staff at all times provided by CPSO, HOTEL YARDPERSON, SECURITY SYSTEMS ADMINISTRATOR plant inspector. 3. May have paper cups, plates, finger foods as well as a cardboard spoon to eat meals with. 4. Follow [facility] Management of the Admitted Behavioral Health Patient policy. 5. Comfort bath system only. 6. No personal belongings 7. Visitors: None at this time. 8. Activities: Soft cart items, television and other activities at RN discretion. 9. Bathroom privileges with supervision 10. Phone: May use Flock phone at RN discretion. 11. Due to INVOLUNTARY status, patient is being held at [facility] by the Department of Mental Health ([facility]) until 2nd certification by [facility] Psychiatrist can be performed (within 24 hours). Staff will provide de-escalation support (CPI) as needed. If patient wishes to leave [facility], staff will contact [facility] Crisis Screener ([phone]) and On-Call Woven Blind Loom Tender ([phone]) as soon as possible. In the event of elopement, notify [place] [employer] ([phone]). Patient is currently involuntarily at [facility]. [facility] Frontline Instructor Adjunct Pharmacy Technician will continue seeking placement. Please contact the Cocktail Server Woven Blind Loom Tender ([phone]) for any needed changes to Safety Plan. Safety plan has been provided to interdepartmental care team. Patient will be transported by [facility] at time of discharge.
--- NOTE | 2021-12-02 15:26 | PDOC.CMSAFED ---
- If Service Date Differs Date of service: 12/02/21 Time of Service: 15:26 Care Management Safety Plan Status: Involuntary - Reason for Wait Reason for Wait: Inpatient Admission NVOLUNTARY FOR INPATIENT PSYCHIATRIC STABILIZATION. Safety plan has been established to meet the needs of the patient, and consideration of the care team, to adhere to patient goals, identify restrictions based on behavioral status, address nutrition, and determine allowed personal belongings, tools for hygiene and personal care. Determine level of activity including ambulation, level of supervision, visitors, and determine privileges based on behaviors and level of engagement by pt. SAFETY PLAN: 1. Will remain on SI/HI precautions. In Paper Clothes 2. Will remain in room under direct supervision of one-on-one staff at all times provided by CPSO, ADDICTION PSYCHIATRIST, CAR FILLER junior staff accountant. 3. May have paper cups, plates, finger foods as well as a cardboard spoon to eat meals with. 4. Follow [facility] Management of the Admitted Behavioral Health Patient policy. 5. Comfort bath system only. 6. No personal belongings 7. Visitors: None at this time. 8. Activities: Soft cart items, television and other activities at RN discretion. 9. Bathroom privileges with supervision 10. Phone: May use TrackVia phone at RN discretion. 11. Due to INVOLUNTARY status, patient is being held at [facility] by the Department of Mental Health ([facility]) until 2nd certification by [facility] Psychiatrist can be performed (within 24 hours). Staff will provide de-escalation support (CPI) as needed. If patient wishes to leave [facility], staff will contact [facility] Crisis Screener ([phone]) and On-Call Physician Interventional Cardiologist ([phone]) as soon as possible. In the event of elopement, notify [place] [employer] ([phone]). Patient is currently involuntarily at [facility]. [facility] Frontline Gill Net Stringer will continue seeking placement. Please contact the Aluminum Boats Assembler Physician Interventional Cardiologist ([phone]) for any needed changes to Safety Plan. Safety plan has been provided to interdepartmental care team. Patient will be transported by [facility] at time of discharge.
--- NOTE | 2021-12-02 16:25 | CMPROGNOTE_ITS ---
- If Service Date Differs Date of service: 12/02/21 Time of Service: 16:25 Care Management Progress Note Sohan is accepted for an involuntary placement by the [facility]. He will follow up with his PCP, [facility] providers, and plan of care as directed upon discharge from the [place]. [facility] transport team, coordinated by [facility], are providing transportation to [place]. - Status Status: Involuntary - Reason for Wait Reason for Wait: Inpatient Admission ([facility])
--- NOTE | 2021-12-02 16:25 | PDOC.ERCMPRO ---
- If Service Date Differs Date of service: 12/02/21 Time of Service: 16:25 Care Management Progress Note Sohan is accepted for an involuntary placement by the [facility]. He will follow up with his PCP, [facility] providers, and plan of care as directed upon discharge from the [place]. [facility] transport team, coordinated by [facility], are providing transportation to [place]. - Status Status: Involuntary - Reason for Wait Reason for Wait: Inpatient Admission ([facility])
--- NOTE | 2021-12-02 16:34 | W.EDPROG ---
Date of service: 12/02/21 Time of Service: 15:00 Medical Decision Making 1500 --please see previous providers notes for initial presentation, exam, plan and course. Case endorsed with plan to continue to monitor while awaiting placement. Possible transfer to [place] this evening. 1600 --patient accepted for transfer to [place]. Accepting physician psychiatrist Dr. Stephens. Sign Out Sign Out Data: Sign Out Comment: lives at [place], acting bizarre and psychotic, telling neighbors they are all and punching side walks, pending second cert Last updated by King Mcfadden MD at 11/30/21 22:24 Sign Out Comment: Stable throughout the night. No interventions needed Last updated by Chris Hoover DO at 12/01/21 07:42 Sign Out Comment: Patient refused to speak to mental health today. Second certificate completed. Awaiting placement. Last updated by Sarah Abbott DO at 12/01/21 19:44 Sign Out Comment: Patient stable throughout the night. No interventions needed Last updated by Chris Hoover DO at 12/02/21 03:32 Sign Out Comment: EE. Br Durand requested COvid test Last updated by Darryl Crain MD at 12/02/21 14:25 Discharge Plan Disposition Patient Disposition: [facility] Condition: Stable Discharge Details Clinical Impression: Psychosis Primary Care Provider: Saira [facility]iera ED Provider: Sarah Abbott Home Meds and New Rx's Prescriptions: No Action aripiprazole [Abilify] 5 mg tablet 5 mg PO QHS Levemir FlexTouch U-100 Insuln 100 unit/mL (3 mL) insulin pen 20 unit SUBCUT DAILY Label Comments: ADMINISTER 20 UNITS UNDER THE SKIN EVERY MORNING potassium chloride 20 mEq tablet extended release 1 tab PO DAILY Label Comments: TAKE 1 TABLET BY MOUTH EVERY DAY insulin aspart U-100 100 unit/mL (3 mL) insulin pen SUBCUT
--- NOTE | 2021-12-03 14:01 | MHPN_ITS ---
Date of service: 12/02/21 Time of Service: 14:01 Mental Health Emergency Note Release [facility] release signed:: Yes Reason for Visit Client presented to [facility] police department via Officer Leo after police were called to [facility] parking lot where client was found standing in stocking feet soaking wet. Police report that they had received multiple reports that client was walking around with a knife threatening to hurt people. In the last 2 weeks has the pt presented for ES prior to today?: Unknown Client Information Client is: IDDS Well Housed: Yes Non Suicidal Self Injury Current: No History: No Safety Risk/Harm to Self or Others Current Ideation to Harm Self or Others: No Risk: Does risk to harm exist?: yes. Access to means: No. Risk: High Risk Duty to warn indicated: No Asssessment/Mental Status Appearance: Disheveled Attitude: Cooperative and Other (uncooperative) Behavior: Agitated Speech: Normal Affect: Other (angry) Mood: Irritable Thought process: Other (stubborn and denying events that brought him to the ED. Then would not engage. ) Hallucinations: No Delusions: No Attention: Unremarkable Perception: Not impaired Orientation: Fully orientated Memory: Impaired in: Recent Insight: Poor Judgement: Poor Neurovegetative Symptoms Sleep: No change Appetitie: No change Interests: No change Energy: No change Libido: Not applicable Substance Use: Do you use nicotine?: Yes Have you used substances in the last 7 days?: No Additional Issues: Assaultive/Threatening Behavior: No Medical Concerns: No Client engaged in active self harm w/weapon: No Threatening to run away: No Child reported abuse/neglect: No Voluntarily presenting for services: No Domestic violence is a concern: No Extreme Psychosis or extreme behavior is present: No Impression Client is a 36 year old single male who is supported by the IDDS program. Per Keeley Moon ESC report, Client was taken into protective custody on the evening of 11/30, after police received reports client was standing in [facility] parking lot with no shoes on and wet and waving a knife at people. Client stated to ESC Keeley oMon when attempting to be assessed: my name is not Sohan, I am Tyree and I am going to [facility]. Client is showing poor insight and judgment as he denied events that lead to him being in the hospital. Client once asked more specifically about what was shared about that day he shut down as evidenced as turning more specifically away from this clinician, not making eye contact and would not speak. Client is still in need of treatment and is not willing to acknowledge his need for treatment. Resources [facility] reviewed and given:: [facility] Plan/Disposition Recommended Disposition: Hospitalization facilities contacted. Plan: Client was accepted to and transported via [facility]. He will receive follow up by his team upon discharge.? Person reported agreement to plan: No Facilities contacted if Applicable [facility] Accepted, Accepted/transfer pending. Information Sent to [place]: Referral Reports/communication Outcome discussed with: ED/Personnel Final Disposition/Discharge Final accepting facility/transferred to: [place] Transportation Checklist completed and faxed: Yes Transport level: Other
== END 2021-12-02 19:02 | disposition short-term general hospital (02) ==
PROVIDERS: Emergency Medicine; Emergency Provider Physician Assistant; PCP Nurse Practitioner Family
DX: F29 Unspecified psychosis not due to a substance or known physiological condition (principal); F17.210 Nicotine dependence, cigarettes, uncomplicated; Z79.899 Other long term (current) drug therapy
CPT/HCPCS: 36415; 80053; 80307; 87635; 99284; 80320; 80329; 81003; 81015; 83036; 84443; 85025

== ENCOUNTER 2022-03-16 03:44 | Outpatient (CLI) | payer MEDICARE, MEDICAID, SELFPAY ==
--- NOTE | 2022-03-16 10:00 | NS.NUTBLAN_ITS ---
Sohan was referred for diabetes self management education. Accompanied by home provider. PMH: DM1, HLD, Schizoaffective disorder. Reports that last year was dx with DM1. 5'6 140 lbs BMI 22.6 baseline weight DM meds: 5 units levemir in AM, sliding scale novolog during day. Typically takes novolog once daily. Does not like pricking self. Exercise: walks a lot. Gets up at 4 am and walks in house and outside Labs: A1C (02/04/22): 7.6%, Chol: 251, LDL: 161, HDL: 44, Tri Diet Recall: syriac yogurt for B, Lunch: sandwich, Dinner: burrito. Snacks: jerky, chips Steve does not check his blood sugars very often, but reports that typically his numbers run 100-110 mg/dl fasting, and under 150 mg/dl during day. Current insulin needs lower than expected but may be related to his higher metabolism, constant walking and recent diagnosis. He continues to have hypoglycemia awareness. At risk for elevated blood sugars as not wanting to check blood sugars or give himself multiple daily injections. Sohan would like an insulin pump and is familiar with it as a friend of his has one at work. He is also interested in a CGM to provide him with alerts with glycemic excursions. These devices would help him monitor and treat his Dm1 more effectively and reduce risk of Dm related complications down the road. Recommend referral to endocrinology- Dr. Alas in [place], [place] to set up insulin pump Recommend script for Dexcom G6 that can be paired with his iphone. Will follow up by phone in 2 weeks.
== END 2022-03-16 03:45 | disposition home or self-care (01) ==
LOC: DS 03:44
PROVIDERS: PCP Nurse Practitioner Family; Visit Provider Dietitian, Registered
DX: E10.9 Type 1 diabetes mellitus without complications (principal); Z79.4 Long term (current) use of insulin; Z71.3 Dietary counseling and surveillance; E78.5 Hyperlipidemia, unspecified
CPT/HCPCS: 97802

== ENCOUNTER 2022-06-11 11:19 | Outpatient (CLI) | payer MEDICARE, MEDICAID, SELFPAY ==
[2022-06-11 11:18] LABS: Hemoglobin A1C 12.6 % (<5.7)
[2022-06-11 11:31] LABS: Anion Gap 6.4 mmol/L (3-11); BUN 11 mg/dL (7-18); CO2 29.6 mmol/L (21.0-32.0); CREATININE 1.1 mg/dL (0.70-1.30); Calcium 9.3 mg/dL (8.5-10.1); Chloride 95 mmol/L (98-107); Estimated GFR 88.12 (mL/min/1.73m2); Glucose 452 mg/dL (74-106); Potassium 3.9 mmol/L (3.5-5.1); Sodium 131 mmol/L (136-145)
[2022-06-11 20:51] LABS: Beta-Hydroxybutyrate 0.3 mmol/L (<0.4)
[2022-06-13 09:02] LABS: Fructosamine 615 mcmol/L (200 - 285)
[2022-06-14 10:42] LABS: C-Peptide 1.3 ng/mL (1.1 - 4.4)
== END 2022-06-11 11:20 | disposition home or self-care (01) ==
LOC: LBO 11:29
PROVIDERS: PCP Nurse Practitioner Family; Visit Provider Internal Medicine Endocrinology, Diabetes & Metabolism
DX: E10.65 Type 1 diabetes mellitus with hyperglycemia (principal)
CPT/HCPCS: 36415; 80048; 86341; 82010; 82985; 83036; 84681

== ENCOUNTER 2022-07-19 11:41 | Outpatient (REF) | payer MEDICARE, MEDICAID, SELFPAY ==
[2022-07-19 16:03] LABS: HGB 15.3 g/dL (13.5-17.5); MCH 32.4 pg (27.0-33.0); MCHC 33.3 % (32.0-36.0); MCV 98 fL (80-95); MPV 10.8 fL (8.0-11.0); Platelet Count 350 10^3/uL (130-400); RBC 4.72 10^6/uL (4.36-5.78); RDW 11.9 % (11.8-14.1); RDW-SD 43.3 fL; WBC 16.12 10^3/uL (4.4-10.8)
[2022-07-19 16:07] LABS: Anion Gap 5.8 mmol/L (3-11); BUN 16 mg/dL (7-18); CO2 27.2 mmol/L (21.0-32.0); Calcium 9.5 mg/dL (8.5-10.1); Chloride 101 mmol/L (98-107); GGT 30 U/L (15-85); Glucose 227 mg/dL (74-106); Sodium 134 mmol/L (136-145)
[2022-07-19 18:09] LABS: Vitamin D 25 Total 32.7 ng/mL (30-100)
[2022-07-21 09:54] LABS: Hepatitis C Ab w Rflx HCV PCR Negative (Negative)
== END 2022-07-19 11:42 | disposition home or self-care (01) ==
LOC: NCHCN 11:41
PROVIDERS: PCP Nurse Practitioner Family; Visit Provider Nurse Practitioner Family
DX: E87.6 Hypokalemia (principal); R74.8 Abnormal levels of other serum enzymes; E10.65 Type 1 diabetes mellitus with hyperglycemia; D72.829 Elevated white blood cell count, unspecified; Z11.59 Encounter for screening for other viral diseases; Z79.899 Other long term (current) drug therapy
CPT/HCPCS: 80048; 82306; 85027; 86803; 82977

== ENCOUNTER 2022-12-06 03:27 | Outpatient (CLI) | payer MEDICARE, MEDICAID, SELFPAY ==
[2022-12-06 11:04] LABS: Anion Gap 8.9 mmol/L (3-11); BUN 6 mg/dL (7-18); CO2 28.1 mmol/L (21.0-32.0); CREATININE 0.8 mg/dL (0.70-1.30); Calcium 9.4 mg/dL (8.5-10.1); Chloride 100 mmol/L (98-107); Estimated GFR 116.17 (mL/min/1.73m2); Glucose 76 mg/dL (74-106); Potassium 3.6 mmol/L (3.5-5.1); Sodium 137 mmol/L (136-145)
[2022-12-06 11:16] LABS: Hemoglobin A1C 6.2 % (<5.7)
[2022-12-07 18:04] LABS: C-Peptide 1.7 ng/mL (1.1 - 4.4)
[2022-12-07 18:10] LABS: Fructosamine 260 mcmol/L (200 - 285)
== END 2022-12-06 03:28 | disposition home or self-care (01) ==
PROVIDERS: PCP Nurse Practitioner Family; Visit Provider Internal Medicine Endocrinology, Diabetes & Metabolism
DX: E11.65 Type 2 diabetes mellitus with hyperglycemia (principal)
CPT/HCPCS: 36415; 80048; 82985; 83036; 84681

== ENCOUNTER 2023-03-21 11:55 | Outpatient (REF) | payer MEDICARE, MEDICAID, SELFPAY ==
[2023-03-21 15:26] LABS: Abs Immature Grans 0.03 10^3/uL (0.0-0.06); Absolute Basophil Count 0.05 10^3/uL (0.0-0.2); Absolute Eosinophil Count 0.08 10^3/uL (0.0-0.7); Absolute Lymphocyte Count 3.93 10^3/uL (1.2-3.4); Absolute Monocyte Count 0.95 10^3/uL (0.1-0.8); Absolute Neutrophil Count 5.13 10^3/uL (1.2-6.7); Basophils % 0.5; Eosinophils % 0.8; HCT 38.6 % (40.0-50.0); HGB 12.9 g/dL (13.5-17.5); Immature Grans % 0.3; Lymphocytes % 38.6; MCH 32.5 pg (27.0-33.0); MCHC 33.4 % (32.0-36.0); MCV 97 fL (80-95); MPV 9.8 fL (8.0-11.0); Monocytes % 9.3; Neutrophils % 50.5; Platelet Count 352 10^3/uL (130-400); RBC 3.97 10^6/uL (4.36-5.78); RDW 13.4 % (11.8-14.1); RDW-SD 47.9 fL; WBC 10.17 10^3/uL (4.4-10.8)
[2023-03-21 16:02] LABS: Vitamin D 25 Total 39.1 ng/mL (30-100)
[2023-03-21 16:10] LABS: ALT 32 U/L (16-63); AST 26 U/L (15-37); Albumin 3.6 g/dL (3.4-5.0); Alkaline Phosphatase 141 U/L (46-116); Anion Gap 10.7 mmol/L (3-11); BUN 4 mg/dL (7-18); Bilirubin, Total 0.3 mg/dL (0.2-1.0); CO2 22.3 mmol/L (21.0-32.0); CREATININE 0.8 mg/dL (0.70-1.30); Calcium 8.9 mg/dL (8.5-10.1); Chloride 102 mmol/L (98-107); Estimated GFR 116.17 (mL/min/1.73m2); GGT 60 U/L (15-85); Glucose 81 mg/dL (74-106); Potassium 4.7 mmol/L (3.5-5.1); Sodium 135 mmol/L (136-145); Total Protein 6.5 g/dL (6.4-8.2)
[2023-03-21 16:40] LABS: Calculated LDL 64 mg/dL (<100); Cholesterol 129 mg/dL (<200); HDL Cholesterol 41 mg/dL (40-60); Triglyceride 121 mg/dL (<150)
== END 2023-03-21 11:56 | disposition home or self-care (01) ==
LOC: NCHCN 11:55
PROVIDERS: PCP Nurse Practitioner Family; Visit Provider Nurse Practitioner Family
DX: R74.8 Abnormal levels of other serum enzymes (principal); E87.6 Hypokalemia; D72.829 Elevated white blood cell count, unspecified; E78.5 Hyperlipidemia, unspecified; Z79.899 Other long term (current) drug therapy
CPT/HCPCS: 80053; 80061; 82306; 82977; 85025

== ENCOUNTER 2023-10-27 16:45 | Outpatient (REF) | payer MEDICARE, MEDICAID, SELFPAY ==
[2023-10-27 21:45] LABS: Abs Immature Grans 0.05 10^3/uL (0.0-0.06); Absolute Monocyte Count 0.78 10^3/uL (0.1-0.8); Basophils % 0.5 %; Eosinophils % 0.8 %; HCT 39.6 % (40.0-50.0); HGB 13.2 g/dL (13.5-17.5); Immature Grans % 0.3 %; MCH 32.3 pg (27.0-33.0); MCHC 33.3 % (32.0-36.0); MCV 97 fL (80-95); Monocytes % 4.7 %; Neutrophils % 57.7 %; Platelet Count 305 10^3/uL (130-400); RBC 4.09 10^6/uL (4.36-5.78); RDW 11.8 % (11.8-14.1); RDW-SD 42.2 fL; WBC 16.57 10^3/uL (4.4-10.8)
[2023-10-27 21:52] LABS: ALT 27 U/L (16-63); AST 24 U/L (15-37); Albumin 3.9 g/dL (3.4-5.0); Alkaline Phosphatase 203 U/L (46-116); Anion Gap 5.3 mmol/L (3-11); BUN 8 mg/dL (7-18); Bilirubin, Total 0.41 mg/dL (0.2-1.0); CO2 31.7 mmol/L (21.0-32.0); CREATININE 0.9 mg/dL (0.70-1.30); Chloride 99 mmol/L (98-107); Estimated GFR 111.42 (mL/min/1.73m2); Glucose 178 mg/dL (74-106); Potassium 4.5 mmol/L (3.5-5.1); Sodium 136 mmol/L (136-145); Total Protein 6.8 g/dL (6.4-8.2)
[2023-10-27 21:56] LABS: Calcium 9.3 mg/dL (8.5-10.1)
[2023-10-27 22:17] LABS: Absolute Basophil Count 0.08 10^3/uL (0.0-0.2); Absolute Eosinophil Count 0.13 10^3/uL (0.0-0.7); Absolute Lymphocyte Count 5.97 10^3/uL (1.2-3.4); Absolute Neutrophil Count 9.56 10^3/uL (1.2-6.7); Diff Comment Diff Reviewed; RBC Morphology Normal
== END 2023-10-27 16:46 | disposition home or self-care (01) ==
LOC: NCHCN 16:45
PROVIDERS: PCP Nurse Practitioner Family; Visit Provider Nurse Practitioner Family
DX: D72.829 Elevated white blood cell count, unspecified (principal); E87.6 Hypokalemia
CPT/HCPCS: 80053; 85025

== ENCOUNTER 2023-11-23 05:05 | Outpatient (CLI) | payer MEDICARE, MEDICAID, SELFPAY ==
[2023-11-23 09:48] LABS: Absolute Eosinophil Count 0.13 10^3/uL (0.0-0.7); Absolute Lymphocyte Count 4.34 10^3/uL (1.2-3.4); Absolute Monocyte Count 1.09 10^3/uL (0.1-0.8); Absolute Neutrophil Count 13.32 10^3/uL (1.2-6.7); Basophils % 0.4 %; Eosinophils % 0.7 %; HCT 42.4 % (40.0-50.0); HGB 14.3 g/dL (13.5-17.5); Immature Grans % 0.5 %; Lymphocytes % 22.8 %; MCH 32.6 pg (27.0-33.0); MCHC 33.7 % (32.0-36.0); MCV 97 fL (80-95); MPV 8.9 fL (8.0-11.0); Monocytes % 5.7 %; Neutrophils % 69.9 %; Platelet Count 345 10^3/uL (130-400); RBC 4.38 10^6/uL (4.36-5.78); RDW 11.6 % (11.8-14.1); RDW-SD 41.6 fL; WBC 19.05 10^3/uL (4.4-10.8)
[2023-11-23 09:57] LABS: Absolute Basophil Count 0.08 10^3/uL (0.0-0.2)
[2023-11-23 10:30] LABS: Ferritin 235 ng/mL (26-388); Folate 11.7 ng/mL (8.6-20.0); Vitamin B12 644 pg/mL (193-986)
[2023-11-23 10:56] LABS: Hemoglobin A1C 7.6 % (<5.7)
[2023-11-23 11:53] LABS: Iron 98 ug/dL (65-175); Total Iron Binding Capacity 274 ug/dL (250-450); Transferrin Sat 36 % (20-55)
[2023-11-24 09:46] LABS: Transferrin 212 mg/dL (201-352)
== END 2023-11-23 05:06 | disposition home or self-care (01) ==
PROVIDERS: Internal Medicine Endocrinology, Diabetes & Metabolism; PCP Nurse Practitioner Family; Visit Provider Nurse Practitioner Family
DX: D64.9 Anemia, unspecified (principal); E11.649 Type 2 diabetes mellitus with hypoglycemia without coma
CPT/HCPCS: 36415; 82607; 82728; 82746; 83036; 83540; 83550; 84466; 85025

== ENCOUNTER 2024-02-27 17:23 | Outpatient (REF) | payer MEDICARE, MEDICAID, SELFPAY ==
[2024-02-27 21:20] LABS: Bilirubin Negative (Negative); Blood Negative (Negative); Clarity Clear (Clear); Glucose >=1000 mg/dL (Negative); Ketones Negative (Negative); Leukocyte Esterase Negative (Negative); Nitrite Negative (Negative); Urobilinogen 0.2 mg/dL (Up to 0.2)
[2024-02-27 21:21] LABS: COMMENT (LAB VIEW ONLY) 22.73 mg/dL; Microalb ug/mg Crea 81.8 ug/mg Cr
[2024-02-27 21:34] LABS: Bacteria Negative HPF (Negative); C & S Indicated? No; Casts Negative LPF (Negative); Crystals Negative HPF (Negative); Epithelial Cells Rare HPF (Negative); Mucus Negative (Negative); RBC Negative HPF (0-2); WBC Negative HPF (0-5)
== END 2024-02-27 17:24 | disposition home or self-care (01) ==
LOC: NCHCN 17:23
PROVIDERS: PCP Nurse Practitioner Family; Visit Provider Nurse Practitioner Family
DX: E10.65 Type 1 diabetes mellitus with hyperglycemia (principal)
CPT/HCPCS: 81003; 81015; 82043; 82570

== ENCOUNTER 2024-09-03 17:50 | Outpatient (REF) | payer MEDICARE, MEDICAID, SELFPAY ==
[2024-09-03 21:02] LABS: Abs Immature Grans 0.06 10^3/uL (0.0-0.06); HCT 41.8 % (40.0-50.0); HGB 14.1 g/dL (13.5-17.5); MCH 31.2 pg (27.0-33.0); MCHC 33.7 % (32.0-36.0); MCV 93 fL (80-95); MPV 9.7 fL (8.0-11.0); Platelet Count 437 10^3/uL (130-400); RBC 4.52 10^6/uL (4.36-5.78); RDW 11.9 % (11.8-14.1); RDW-SD 40.8 fL; WBC 14.36 10^3/uL (4.4-10.8)
[2024-09-03 21:35] LABS: Immature Grans % 0.0 %; RBC Morphology Normal
[2024-09-03 21:40] LABS: ALT 21 U/L (16-63); AST 12 U/L (15-37); Albumin 4.2 g/dL (3.4-5.0); Alkaline Phosphatase 228 U/L (46-116); Anion Gap 7.6 mmol/L (3-11); BUN 6 mg/dL (7-18); Bilirubin, Total 0.4 mg/dL (0.2-1.0); CO2 31.4 mmol/L (21.0-32.0); Calcium 9.5 mg/dL (8.5-10.1); Chloride 99 mmol/L (98-107); Estimated GFR 110.73 (mL/min/1.73m2); Glucose 243 mg/dL (74-106); Potassium 4.2 mmol/L (3.5-5.1); Sodium 138 mmol/L (136-145); Total Protein 7.3 g/dL (6.4-8.2)
[2024-09-04 12:56] LABS: GGT 32 U/L (15-85)
[2024-09-04 13:37] LABS: Vitamin D 25 Total 45 ng/mL (30-100)
[2024-09-04 22:40] LABS: Total Protein 7.2 g/dL (6.3-8.2)
[2024-09-05 13:36] LABS: Albumin 64.3 % (55.8-66.1); Albumin g/dL 4.6 g/dL (3.6-5.2); Alpha 1 g/dL 0.30 g/dL (0.15-0.40); Alpha 2 g/dL 0.70 g/dL (0.50-1.00); Beta g/dL 0.80 g/dL (0.60-1.20); Gamma g/dL 0.80 g/dL (0.60-1.60)
== END 2024-09-03 17:51 | disposition home or self-care (01) ==
LOC: NCHCN 17:50
PROVIDERS: PCP Nurse Practitioner Family; Visit Provider Nurse Practitioner Family
DX: D72.829 Elevated white blood cell count, unspecified (principal); R74.8 Abnormal levels of other serum enzymes
CPT/HCPCS: 80053; 82306; 82977; 84165; 85025